=== PATIENT | female | born 1980 | race American Indian/Alaskan Native ===

== ENCOUNTER 2017-03-03 18:05 | Inpatient (IN) | payer MEDICAID, OTHER ==
[2017-03-03 19:28] LABS: BASO % 0.7 % (0.0-2.0); EOS % 0.3 % (0.0-4.0); LYMPH # 1.3 K/uL (1.0-4.3); LYMPH % 39.7 % (20.0-40.0); MEAN CELL VOLUME 68.8 fL (81.0-99.0); MEAN CORPUSCULAR HEMOGLOBIN 21.7 pg (27.0-31.0); MEAN CORPUSCULAR HGB CONC 31.5 g/dL (33.0-37.0); MEAN PLATELET VOLUME 7.8 fL (7.2-11.7); MONO # 0.2 K/uL (0.0-0.8); MONO % 5.1 % (0.0-10.0); NEUT # 1.7 K/uL (1.8-7.0); NEUT % 54.2 % (50.0-75.0); RBC 5.09 Mil/uL (3.80-5.20); RED CELL DISTRIBUTION WIDTH 16.1 % (11.5-14.5); WHITE BLOOD COUNT 3.2 K/uL (4.8-10.8)
[2017-03-03 19:30] LABS: HCG,QUALITATIVE URINE NEGATIVE (NEGATIVE)
[2017-03-03 19:36] LABS: SQUAMOUS EPITHIAL 26 /hpf (0-5); URINE BACTERIA MOD (<OCC); URINE BILIRUBIN NEGATIVE (NEGATIVE); URINE BLOOD NEGATIVE (NEGATIVE); URINE CLARITY Clear (Clear); URINE COLOR Yellow (YELLOW); URINE GLUCOSE (UA) NORMAL (Normal); URINE LEUKOCYTE ESTERASE NEG Leu/uL (Negative); URINE NITRATE NEGATIVE (NEGATIVE); URINE PROTEIN NEGATIVE (NEGATIVE); URINE UROBILINOGEN NORMAL mg/dL (0.2-1.0)
[2017-03-03 19:40] LABS: ACETAMINOPHEN < 10.0 ug/mL (10.0-30.0); SALICYLATE < 1.0 mg/dL 1
[2017-03-03 19:42] LABS: ALT/SGPT 18 U/L (9-52); AST/SGOT 21 U/L (14-36); BLOOD UREA NITROGEN 7 mg/dL (7-17); CALCIUM 8.6 mg/dl (8.6-10.4); GFR AFRICAN-AMERICAN > 60; GFR NON-AFRICAN AMERICAN > 60
[2017-03-03 19:55] LABS: BARBITURATES, UR NEGATIVE (NEGATIVE); BENZODIAZEPINES, UR NEGATIVE (NEGATIVE); PHENCYCLIDINE, UR NEGATIVE (NEGATIVE)
[2017-03-03 19:57] LABS: OPIATES, UR POSITIVE (NEGATIVE)
--- NOTE | 2017-03-03 20:33 | C.PDOC ---
History Of Present Illness 36 year old female presents to the ED for evaluation of auditory hallucinations and drug abuse. Patient reports she is hearing voices that tell her to hurt herself. Patient is also requesting detox from heroin and cocaine. Time Seen by Provider: 03/03/17 19:08 Chief Complaint (Nursing): Psychiatric Evaluation History Per: Patient History/Exam Limitations: no limitations Onset/Duration Of Symptoms: Hrs Current Symptoms Are (Timing): Still Present Suicide/Self Injury Attempted (Context): None Modifying Factor(s): Cocaine, Other (Heroin) Associated Symptoms: Depression, Suicidal Thoughts Involuntary Hold By: None Recent travel outside of the [place]: No Additional History Per: Patient Past Medical History Reviewed: Historical Data, Nursing Documentation, Vital Signs Vital Signs: Last Vital Signs Temp 99.7 F H 03/03/17 18:29 Pulse 100 H 03/03/17 18:29 Resp 18 03/03/17 18:29 BP 134/90 03/03/17 18:29 Pulse Ox 100 03/03/17 20:36 - Medical History PMH: Bipolar Disorder, Post Traumatic Stress Disorder Surgical History: No Surg Hx Family History: States: Unknown Family Hx - Social History Hx Alcohol Use: Yes Hx Substance Use: Yes (HEROIN/COCAINE) - Immunization History Hx Tetanus Toxoid Vaccination: No Hx Influenza Vaccination: No Hx Pneumococcal Vaccination: No Review Of Systems Constitutional: Negative for: Fever, Chills Cardiovascular: Negative for: Chest Pain, Palpitations Respiratory: Negative for: Cough, Shortness of Breath Gastrointestinal: Negative for: Nausea, Vomiting, Abdominal Pain Skin: Negative for: Rash Neurological: Negative for: Weakness, Numbness Psych: Negative for: Depression, Suicidal ideation Physical Exam - Physical Exam Appears: Non-toxic, Chronically Ill, Other (black female) Skin: Normal Color, Warm, Dry Head: Atraumatic, Normacephalic Nose: No Discharge Oral Mucosa: Moist Neck: Normal ROM, Supple Chest: Symmetrical Cardiovascular: Rhythm Regular, No Murmur Respiratory: Normal Breath Sounds, No Rales, No Rhonchi, No Wheezing Gastrointestinal/Abdominal: Soft, No Tenderness Extremity: Normal ROM, No Pedal Edema, No Calf Tenderness, No Deformity, No Swelling Neurological/Psych: Oriented x3 ED Course And Treatment - Laboratory Results Result Diagrams: 03/03/17 19:25 03/03/17 19:25 Lab Interpretation: Abnormal (tox + opiates/cocaine) Urine POC: Negative O2 Sat by Pulse Oximetry: 100 (On RA) Pulse Ox Interpretation: Normal Reevaluation Time: 21:04 Reassessment Condition: Unchanged - Physician Consult Information Outcome Of Conversation: 2100: d/w Crisis, ok to admit to psych Medical Decision Making Medical Decision Making: Plan: * Blood work * UA * 1:1 Obs 19:30 - spoke with crisis. Disposition Doctor Will See Patient In The: Hospital Counseled Patient/Family Regarding: Studies Performed - Disposition Disposition: HOSPITALIZED Disposition Time: 21:04 Condition: GOOD Forms: [employer] (Polish) - Clinical Impression Clinical Impression: Manic bipolar I disorder, Cocaine abuse, Opiate abuse, continuous - Scribe Statement The provider has reviewed the documentation as recorded by the Scribe Fermín Bravo All medical record entries made by the Scribe were at my direction and personally dictated by me. I have reviewed the chart and agree that the record accurately reflects my personal performance of the history, physical exam, medical decision making, and the department course for this patient. I have also personally directed, reviewed, and agree with the discharge instructions and disposition.
[2017-03-03 21:29] VITALS: O2SAT 98
--- NOTE | 2017-03-04 04:24 | PCM.BM ---
Treatment Plan Problems - Problems identified on initial assessmt Depression Date Initiated: 03/04/17 Time Initiated: Assessment reference: NA Status: Active Suicidal Ideations Date Initiated: 03/04/17 Time Initiated: Assessment reference: NA Status: Active Substance Abuse Date Initiated: 03/04/17 Time Initiated: Assessment reference: NA Status: Active Treatment assets and liabiliti Patient Assests: adapts well, cooperative, insightful, self-reliant, ADL independent, negotiates basic needs Patient Liabilities: poor support system, substance abuse, medical problems - Milieu Protocol Maintain good personal hygiene: daily Encourage regular showers, daily Remind patient to perform daily oral care, other Assist patient to perform ADL's (PRN) Maintain personal safety: every shift Monitor environment for contraband/sharps , other Educate patient to report safety concerns to staff (PRN) Medication safety: Monitor for expected outcome, potential side effects: every shift, Assess barriers to learning: every shift, Assess readiness for medication education: every shift
--- NOTE | 2017-03-04 10:48 | PCM.PSYCH ---
Initial Psychiatric Evaluation - Initial Psychiatric Evaluation Type of Admission: Voluntary Legal Status: Capacity Chief Complaint (in patient's own words): I was feeling very depressed.' History of Present Illness and Precipitating Events: Patient is a 36 year old AAF who was taken to the by the sister due to depression, hearing voice command type and S/I with plan to jump off pier or to overdose on heroin. Patient reports a long history of bipolar disorder. As per the ED notes,' Pt appeared to be responding to internal stimuli as pt had a delay in responding to questions. Pt states the voices have been occurring for the past several days and sister and family were concerned for pt. Pt had moved back into their three family home in November after being kicked out for drug use. Pt was homeless for some time. Sister brought pt here seeking help. Pt reports she has been verbalizing to family that she has a plan to hurt herself by jumping off pier or overdosing on heroin. Pt reports a hx of several suicide attempts of heroin overdose and medication overdose. Pt is currently not under the care of a psychiatric but her PCP who is prescribing meds. Pt has a hx of bipolar disorder but stopped taking risperdal and lithium 1 to 2 months ago. Pt does report hx of psychiatric admission but only reports at [facility] and [place]. Pt reports last use of heroin today 3 or 4 am and cocaine last use today 5pm. Pt remained very disorganized and internally preoccupied. She remained a poor historian. She still reports depressed mood, suicidal ideation and command type AH. She appeared delusional, paranoid and bizarre. She reports of injecting 12 bags of heroin and smoking $50 worth cocaine daily. She reports withdrawal symptoms including nausea, headache, cramps, joint pains and anxiety. She also reports poor sleep and poor appetite. Pt is currently experiencing suicidal thoughts with a plan to jump off pier or overdose on heroin. Pt denies H/I. PMH None reported Current Medications: Active Medications Generic Name Dose Route Start Last Admin Trade Name Freq PRN Reason Stop Dose Admin Mirtazapine 45 mg 03/03/17 23:30 03/04/17 00:02 Remeron PO 45 mg HS WHITLEY Administration Zolpidem Tartrate 5 mg 03/03/17 23:18 03/03/17 23:51 Ambien PO 5 mg HS PRN Administration Insomnia Past Psychiatric History - Past Psychiatric History Previous Treatment History: Inpatient Pertinent Medical Hx (Current Medical&Sleep Prob, Allergies): Allergies Allergy/AdvReac Type Severity Reaction Status Date / Time No Known Allergies Allergy Verified 03/03/17 18:37 Clonazepam [Klonopin] 2 mg PO DAILY 03/03/17 Mirtazapine [Remeron] 45 mg PO HS 03/03/17 Pantoprazole Sodium [Protonix] 40 mg PO DAILY 03/03/17 Zolpidem [Ambien] 10 mg PO HS 03/03/17 oxyCODONE/Acetaminophen [Percocet 5/325 mg Tab] 1 tab PO Q4 03/03/17 Review of Systems - Review of Systems All systems: reviewed and no additional remarkable complaints except - Psychiatric Psychiatric: Anxiety, Auditory Hallucinations, Depression, Hopelessness, Irritability, Suicidal Ideation Mental Status Examination - Personal Presentation Personal Presentation: Looks stated age - Affect Affect: Constricted, Depressed - Motor Activity Motor Activity: Psychomotor Retardation - Reliability in Providing Information Reliability in Providing Information: Poor, due to alteration in thoughts, Poor , due to altered mood - Speech Speech: Disorganized - Mood Mood: Depressed, Anxious - Formal Thought Process Formal Thought Process: Hallucinations, Delusions, Paranoia, Loosening of associations - Hallucinations/Delusions Hallucinations: Auditory - Obsessions/Compulsions Obsessions: No Compulsions: No - Cognitive Functions Orientation: Person, Place, Situation, Time Sensorium: Alert Attention/Concentration: Attentive Abstract Thinking: [place] Estimate of Intelligence: Below average Judgement: Imparied, as evidence by: Poor judgement, Imparied, as evidence by: Lack of insight into illness - Risk Risk: Suicidal, Withdrawal, Diminished functioning - Strength & Assets Inventory Strength & Assets Inventory: Family support - Limitations Limitations: Living alone DSM 5 DX - DSM 5 DSM 5 Diagnosis: Schizo affective disorder bipolar type Opioid use disorder severe Opioid withdrawal Cocaine use disorder moderate - Recommended/Plan of Treatment Treatment Recommendations and Plan of Treatment: Schizo affective disorder bipolar type -CBT -Psychoeducation -Supportive therapy, group therapy, individual therapy -Risperdal 2 mg PO QHS -Remeron 45 mg PO QHS -[place] 300 mg PO TID -Trazodone 50 mg by mouth daily at bedtime Opioid use disorder severe -CBT -Psychoeducation -Supportive therapy, individual therapy -Use [place] for abstinence Opioid withdrawal -CBT -Psychoeducation -Supportive therapy, individual therapy -Clonidine when necessary -Methadone taper Cocaine use disorder moderate -Monitor signs and symptoms -Use [place] for abstinence - Smoking Cessation Smoking Cessation Initiated: No
--- NOTE | 2017-03-05 14:40 | PCM.PYCHPN ---
Psychiatric Progress Note - Psychiatric Progress Note Patient seen today, length of contact: 15 min Patient Chief Complaint: I was feeling very depressed.' Problems Identified/Issues Discussed: Patient seen and evaluated, chart reviewed and discussed with the nurse. Patient reports irritability and agitation. She still reports depressed mood and feelings of hopelessness and helplessness. She remained isolated and withdrawn. She still reports withdrawal symptoms including anxiety, joint pains , abdominal cramps, headaches and sweating. Patient still appears disorganized and internally preoccupied. However she remained calm and cooperative. She is taking medication and denies any side effects. She needs more time for stabilization Supportive therapy and psychoeducation were given Medication Change: Yes (Methadone taper) Medical Record Reviewed: Yes Mental Status Examination - Cognitive Function Orientation: Person, Place, Situation, Time Memory: Intact Attention: WNL Concentration: Poor Association: Loose Fund of Knowledge: WNL - Mood Mood: Depressed, Anxious - Affect Affect: Constricted, Depressed - Speech Speech: Soft - Formal Thought Process Formal Thought Process: Hallucinations, Delusions, Paranoia, Loosening of associations - Suicidal Ideation Suicidal Ideation: No - Homicidal Ideation Homicidal Ideation: No Goal/Treatment Plan - Goal/Treatment Plan Need for Continued Stay: Remain at risks for inpatient hospitalization, Severe functional impairment Progress Toward Problem(s) and Goals/Treatment Plan: Schizo affective disorder bipolar type -CBT -Psychoeducation -Supportive therapy, group therapy, individual therapy -Risperdal 2 mg PO QHS -Remeron 45 mg PO QHS -[place] 300 mg PO TID -Trazodone 50 mg by mouth daily at bedtime Opioid use disorder severe -CBT -Psychoeducation -Supportive therapy, individual therapy -Use [place] for abstinence Opioid withdrawal -CBT -Psychoeducation -Supportive therapy, individual therapy -Clonidine when necessary -Methadone taper Cocaine use disorder moderate -Monitor signs and symptoms -Use [place] for abstinence - Smoking Cessation Smoking Cessation Initiated: No
--- NOTE | 2017-03-06 10:56 | PCM.PYCHPN ---
Psychiatric Progress Note - Psychiatric Progress Note Patient seen today, length of contact: 15 min Patient Chief Complaint: I was feeling little better.' Problems Identified/Issues Discussed: Patient seen and evaluated, chart reviewed and discussed with the nurse. Patient reports some improvement in her mood and paranoia. She reports improvement in her irritability and feelings of hopelessness and helplessness. She remained isolated and withdrawn. She still reports withdrawal symptoms i.e, anxiety, joint pains, abdominal cramps, headaches and sweating. She remained calm and cooperative. She is taking medication and denies any side effects. She needs more time for stabilization Supportive therapy and psychoeducation were given Medication Change: Yes (Methadone taper) Medical Record Reviewed: Yes Mental Status Examination - Cognitive Function Orientation: Person, Place, Situation, Time Memory: Intact Attention: WNL Concentration: Poor Association: WNL Fund of Knowledge: Poor - Mood Mood: Depressed, Anxious - Affect Affect: Constricted, Depressed - Speech Speech: Soft - Formal Thought Process Formal Thought Process: Paranoia - Suicidal Ideation Suicidal Ideation: No - Homicidal Ideation Homicidal Ideation: No Goal/Treatment Plan - Goal/Treatment Plan Need for Continued Stay: Severe depression anxiety, Severe functional impairment Progress Toward Problem(s) and Goals/Treatment Plan: Schizo affective disorder bipolar type -CBT -Psychoeducation -Supportive therapy, group therapy, individual therapy -Increase Risperdal 1 gm PO Q Daily -Risperdal 2 mg PO QHS -Remeron 45 mg PO QHS -[place] 300 mg PO TID -Trazodone 50 mg by mouth daily at bedtime Opioid use disorder severe -CBT -Psychoeducation -Supportive therapy, individual therapy -Use [place] for abstinence Opioid withdrawal -CBT -Psychoeducation -Supportive therapy, individual therapy -Clonidine when necessary -Methadone taper Cocaine use disorder moderate -Monitor signs and symptoms -Use [place] for abstinence - Smoking Cessation Smoking Cessation Initiated: No
--- NOTE | 2017-03-06 16:01 | CP.PCM.HP ---
Past Patient History - Infectious Disease Hx of Infectious Diseases: None - Past Social History Smoking Status: Never Smoked - CARDIAC Hx Cardiac Disorders: No Other/Comment: States she has peripheral neuropathy. Also noted 2 raised small abscessed appearing areas on arms: Above Rt. wrist/low arm, small hardened area , bruising (from skin popping) Skin with some erythema and warmth to touch. Left wrist: radial artery area small hardeded raised area as above, erythema less, warmth is less. - PULMONARY Hx Respiratory Disorders: No - NEUROLOGICAL Hx Neurological Disorder: No - HEENT Hx HEENT Problems: No - RENAL Hx Chronic Kidney Disease: No - ENDOCRINE/METABOLIC Hx Endocrine Disorders: No Other/Comment: HYPOGLYCEMIA - HEMATOLOGICAL/ONCOLOGICAL Hx Blood Disorders: No - INTEGUMENTARY Other/Comment: Noted with healed/in process of healing small circular scaring about the face - MUSCULOSKELETAL/RHEUMATOLOGICAL Hx Musculoskeletal Disorders: No - GASTROINTESTINAL Hx Bowel Surgery: Yes Other/Comment: STOMACH PROBLEMS. HX OF BOWEL OBSTRUCTIONS. Reports multiple surgeries, absorption difficulty at times. - GENITOURINARY/GYNECOLOGICAL Hx Genitourinary Disorders: No Other/Comment: HCG (-) - PSYCHIATRIC Hx Substance Use: Yes - SURGICAL HISTORY Hx Surgeries: Yes Hx Section: Yes (X1) Hx Gastric Bypass Surgery: Yes Other/Comment: CERGLACE. BOWEL SURGERY TO REPAIR OBSTRUCTION - ANESTHESIA Hx Anesthesia: Yes Hx Anesthesia Reactions: No Hx Malignant Hyperthermia: No Meds Allergies/Adverse Reactions: Allergies Allergy/AdvReac Type Severity Reaction Status Date / Time No Known Allergies Allergy Verified 03/03/17 18:37 Results - Vital Signs Recent Vital Signs: Last Vital Signs Temp 98.1 F 03/06/17 06:05 Pulse 78 03/06/17 15:55 Resp 18 03/06/17 06:05 BP 103/69 03/06/17 15:55 Pulse Ox 98 03/03/17 21:27 - Labs Result Diagrams: 03/03/17 19:25 03/03/17 19:25
--- NOTE | 2017-03-06 16:44 | CP.PCM.CON ---
<Orlando Shipman - Last Filed: 03/06/17 16:24> History of Present Illness - History of Present Illness History of Present Illness: Medicine Conult Note Patient is a 36 year old female with PMHx of B12 Def, Hyperglycemia, 4 stomach surgeries (Due to obstruction), depression, and BiPolar disorder who was admitted to Psychiatric unit for evaluation and treatment of depression, audio command type hallucination, and suicidal ideation. Medicine team was consulted on this patient for the evaluation and treatment of right arm lumps. Patient states she had tender erythema on both hands on sites where she injected heroin. She states it has been there for several weeks but has recently gotten palpable. In Dec. patient was admitted to [facility] in [place] for hand cellulitis and erythema. She was put on clindamycin and was supposed to continue taking PO Ab's but could not since she went to correction. ROS NEGATIVE: Fever, chills, motor weakness, sensory loss, chest pain, SOB. POSITVES: Hand Tenderness, Constipation PMHx: Hyperglycemia, B12 Def. PSHx: 4 stomach surgeries Allergies: Denies Social Hx: 1/2 PPD for 20 years. Denies EtOH use. Admits to Heroin and Coccaine use. Lives in the top floor of a 3 family house that her parents own. Is currently unemployed Hospitilizations: Latest is at [facility] as stated in HPI FamHx: Lupus (Grandmother, Mother, Sister, Daughter), Diabetes (multiple family members) Meds: Reviewed Psychotropic meds. Has B12 injections. PMD: Dr. Omega Kruse Review of Systems - Review of Systems Review of Systems: As per HPI Past Patient History - Infectious Disease Hx of Infectious Diseases: None - Past Social History Smoking Status: Never Smoked - CARDIAC Hx Cardiac Disorders: No Other/Comment: States she has peripheral neuropathy. Also noted 2 raised small abscessed appearing areas on arms: Above Rt. wrist/low arm, small hardened area , bruising (from skin popping) Skin with some erythema and warmth to touch. Left wrist: radial artery area small hardeded raised area as above, erythema less, warmth is less. - PULMONARY Hx Respiratory Disorders: No - NEUROLOGICAL Hx Neurological Disorder: No - HEENT Hx HEENT Problems: No - RENAL Hx Chronic Kidney Disease: No - ENDOCRINE/METABOLIC Hx Endocrine Disorders: No Other/Comment: HYPOGLYCEMIA - HEMATOLOGICAL/ONCOLOGICAL Hx Blood Disorders: No - INTEGUMENTARY Other/Comment: Noted with healed/in process of healing small circular scaring about the face - MUSCULOSKELETAL/RHEUMATOLOGICAL Hx Musculoskeletal Disorders: No - GASTROINTESTINAL Hx Bowel Surgery: Yes Other/Comment: STOMACH PROBLEMS. HX OF BOWEL OBSTRUCTIONS. Reports multiple surgeries, absorption difficulty at times. - GENITOURINARY/GYNECOLOGICAL Hx Genitourinary Disorders: No Other/Comment: HCG (-) - PSYCHIATRIC Hx Substance Use: Yes - SURGICAL HISTORY Hx Surgeries: Yes Hx Section: Yes (X1) Hx Gastric Bypass Surgery: Yes Other/Comment: CERGLACE. BOWEL SURGERY TO REPAIR OBSTRUCTION - ANESTHESIA Hx Anesthesia: Yes Hx Anesthesia Reactions: No Hx Malignant Hyperthermia: No Meds Allergies/Adverse Reactions: Allergies Allergy/AdvReac Type Severity Reaction Status Date / Time No Known Allergies Allergy Verified 03/03/17 18:37 - Medications Medications: Current Medications Benztropine Mesylate (Cogentin) 1 mg PO [facility] Last Admin: 03/05/17 21:48 Dose: 1 mg Clonidine HCl (Catapres) 0.1 mg PO Q8 PRN PRN Reason: COWS Score More or Equal to 5 Hydroxyzine HCl (Atarax) 25 mg PO Q6 PRN PRN Reason: Agitation Last Admin: 03/06/17 12:35 Dose: 25 mg [place] Carbonate ([place] Carbonate 300mg) 300 mg PO TID [facility] Last Admin: 03/06/17 13:04 Dose: 300 mg Loperamide HCl (Imodium) 2 mg PO Q8 PRN PRN Reason: Diarrhea Methadone HCl (Methadone) 5 mg PO DAILY PRN PRN Reason: opiate withdrawal Last Admin: 03/06/17 13:05 Dose: 5 mg Methadone HCl (Methadone) 5 mg PO DAILY [facility] PRN Reason: Taper Stop: 03/07/17 09:59 Last Admin: 03/06/17 09:39 Dose: 5 mg Mirtazapine (Remeron) 45 mg PO [facility] Last Admin: 03/05/17 21:48 Dose: 45 mg Ondansetron HCl (Zofran Tab) 4 mg PO Q8 PRN PRN Reason: Nausea/Vomiting Promethazine HCl (Phenergan Inj) 25 mg IM QID PRN PRN Reason: Nausea/Vomiting, Unable PO Risperidone (Risperdal Tab) 2 mg PO [facility] Last Admin: 03/05/17 21:47 Dose: 2 mg Risperidone (Risperdal Tab) 1 mg PO DAILY [facility] Zolpidem Tartrate (Ambien) 5 mg PO HS PRN PRN Reason: Insomnia Last Admin: 03/04/17 21:51 Dose: 5 mg Physical Exam - Constitutional Appears: Well, Non-toxic, No Acute Distress - Head Exam Head Exam: ATRAUMATIC, NORMAL INSPECTION, NORMOCEPHALIC - Eye Exam Eye Exam: EOMI, Normal appearance - ENT Exam ENT Exam: Mucous Membranes Moist - Neck Exam Neck exam: Negative for: Lymphadenopathy - Respiratory Exam Respiratory Exam: absent: Clear to Auscultation Bilateral, Rales, Rhonchi, Wheezes - Cardiovascular Exam Cardiovascular Exam: RRR, +S1, +S2 - GI/Abdominal Exam GI & Abdominal Exam: Normal Bowel Sounds, Soft. absent: Tenderness - Extremities Exam Extremities exam: Positive for: normal capillary refill. Negative for: pedal edema - Neurological Exam Neurological exam: Alert, Oriented x3 - Psychiatric Exam Psychiatric exam: Normal Affect - Skin Additional comments: Multiple IV ayoub on upper Ext. B/l 3 palpable erythematous lesions on dorsal surface of left hand 2 palpable erythematous lesions on right hand. One on dorsal surface on hand, one on ant. wrist. Results - Vital Signs Recent Vital Signs: Last Vital Signs Temp 98.1 F 03/06/17 06:05 Pulse 78 03/06/17 15:55 Resp 18 03/06/17 06:05 BP 103/69 03/06/17 15:55 Pulse Ox 98 03/03/17 21:27 - Labs Result Diagrams: 03/03/17 19:25 03/03/17 19:25 Assessment & Plan - Assessment and Plan (Free Text) Assessment: Patient is a 36 year old female with PMHx of B12 Def, Hyperglycemia, 4 stomach surgeries (Due to obstruction), depression, and BiPolar disorder who was admitted to Psychiatric unit for evaluation and treatment of depression, audio command type hallucination, and suicidal ideation. Medicine team was consulted on this patient for the evaluation and treatment of right arm lumps. Plan: Possible cellulitis vs abscess vs cyst with lymphangitis - B/L hand X-ray -B/L hand US -Clindamycin 300 TID -Florastor -B12 Level due to Hx of b12 -CMP/CBC -HIV -Hepatitis Panel Constipation: -Consider stopping Immodium due to constipation. Dispo: We will continue to follow this patient. Patient seen and discussed with Attending Orlando Shipman - [email or web address] - Date & Time Date: 03/06/17 Time: 16:57 <Missy Douglas V - Last Filed: 03/06/17 19:04> Meds - Medications Medications: Current Medications Benztropine Mesylate (Cogentin) 1 mg PO HS [facility] Last Admin: 03/05/17 21:48 Dose: 1 mg Clindamycin HCl (Cleocin) 300 mg PO TID [facility] Last Admin: 03/06/17 17:38 Dose: 300 mg Clonidine HCl (Catapres) 0.1 mg PO Q8 PRN PRN Reason: COWS Score More or Equal to 5 Hydroxyzine HCl (Atarax) 25 mg PO Q6 PRN PRN Reason: Agitation Last Admin: 03/06/17 12:35 Dose: 25 mg [place] Carbonate ([place] Carbonate 300mg) 300 mg PO TID [facility] Last Admin: 03/06/17 17:38 Dose: 300 mg Loperamide HCl (Imodium) 2 mg PO Q8 PRN PRN Reason: Diarrhea Methadone HCl (Methadone) 5 mg PO DAILY PRN PRN Reason: opiate withdrawal Last Admin: 03/06/17 13:05 Dose: 5 mg Methadone HCl (Methadone) 5 mg PO DAILY [facility] PRN Reason: Taper Stop: 03/07/17 09:59 Last Admin: 03/06/17 09:39 Dose: 5 mg Mirtazapine (Remeron) 45 mg PO HS [facility] Last Admin: 03/05/17 21:48 Dose: 45 mg Ondansetron HCl (Zofran Tab) 4 mg PO Q8 PRN PRN Reason: Nausea/Vomiting Promethazine HCl (Phenergan Inj) 25 mg IM QID PRN PRN Reason: Nausea/Vomiting, Unable PO Risperidone (Risperdal Tab) 2 mg PO HS [facility] Last Admin: 03/05/17 21:47 Dose: 2 mg Risperidone (Risperdal Tab) 1 mg PO DAILY [facility] Saccharomyces Boulardii (Florastor) 250 mg PO BID [facility] Last Admin: 03/06/17 17:38 Dose: 250 mg Zolpidem Tartrate (Ambien) 5 mg PO HS PRN PRN Reason: Insomnia Last Admin: 03/04/17 21:51 Dose: 5 mg Results - Vital Signs Recent Vital Signs: Last Vital Signs Temp 98.1 F 03/06/17 06:05 Pulse 78 03/06/17 15:55 Resp 18 03/06/17 06:05 BP 103/69 03/06/17 15:55 Pulse Ox 98 03/03/17 21:27 - Labs Result Diagrams: 03/03/17 19:25 03/03/17 19:25 Attending/Attestation - Attestation I have personally seen and examined this patient.: Yes I have fully participated in the care of the patient.: Yes I have reviewed all pertinent clinical information: Yes Notes (Text): Patient seen and examined and case discussed with medical transcription supervisor. Medicine consult for sit cellulitis and possible abscess or patient's hands. patient has been admitted to psych for depressio schizophrenia bipolar disorder. On admission patient is positive fo Opioids and cocaine. Patient admission did have some hypokalemia. Patient is a known IV drug user who reports has injected multiple sites of her body. Patient reports she uses clean needles where in she buys them from places like [employer] so she reports the needles are clean. Patient reports that she has been checked for HIV in the past reports that she is negative. Patient has been recommended for antibiotic in the past has not been compliant given incarceration. Physical Exam: Patient is awake alert oriented 3 in no acute distress. Lungs are clear to auscultation bilaterally no wheezing or rales rhonchi. Heart is S1-S2 is appreciated regular rate and rhythm no appreciable murmur on exam. Abdomen is soft nondistended and nontender bowel sounds are present. No rebound no guarding. Extremities range of motion (passive) is intact over the upper and lower extremity patient is able to have a firm handshake and denies any pain over the hand. Patient has over left wrist but 2 fingerbreadth mass which is soft appears normal on fixed nontender. Patient has mild cellulitis over the left outer aspect of the arm. Patient has multiple healing wounds over her face and small areas around her hand and wrist. Patient over her left wrist appears to have cyst. Suspicion for sebaceous cyst however she reports seeing she'll also has injected at that site. Patient has over her left forearm some mild lymphangitic spread. Patient has been afebrile. Patient ordered for lab work. Since her last operative risk from 03/03/2017. To monitor for any type of white count. Patient denies any allergies to medications. We will start patient on by mouth clindamycin to cover for both MRSA and anaerobic. Patient will be placed on probiotic. Patient is ordered for x-rays of her hands as well as an ultrasound just to appreciate what looks like a sebaceous cyst but rule out abscess.
[2017-03-06] MEDS: Saccharomyces Boulardi 250 mg Cap PO SCH (17:38)
[2017-03-06 20:39] LABS: BASO % 0.5 % (0.0-2.0); HEMOGLOBIN 10.9 g/dL (11.0-16.0); LYMPH # 2.5 K/uL (1.0-4.3); LYMPH % 51.6 % (20.0-40.0); MEAN CELL VOLUME 69.1 fL (81.0-99.0); MEAN CORPUSCULAR HEMOGLOBIN 21.1 pg (27.0-31.0); MEAN CORPUSCULAR HGB CONC 30.6 g/dL (33.0-37.0); MEAN PLATELET VOLUME 7.8 fL (7.2-11.7); MONO # 0.3 K/uL (0.0-0.8); MONO % 7.1 % (0.0-10.0); NEUT % 39.8 % (50.0-75.0); NRBC % 0.1 % (0.0-2.0); RBC 5.14 Mil/uL (3.80-5.20); RED CELL DISTRIBUTION WIDTH 16.6 % (11.5-14.5); WHITE BLOOD COUNT 4.9 K/uL (4.8-10.8)
[2017-03-06 20:58] LABS: ALBUMIN 4.3 g/dL (3.5-5.0); ALT/SGPT 19 U/L (9-52); AST/SGOT 22 U/L (14-36); BLOOD UREA NITROGEN 11 mg/dL (7-17); CALCIUM 8.6 mg/dl (8.6-10.4); GFR AFRICAN-AMERICAN > 60; GFR NON-AFRICAN AMERICAN > 60
--- NOTE | 2017-03-06 21:25 | US ---
EXAM: US Right Upper Extremity Non-Vascular, Limited CLINICAL HISTORY: 36 years old, female; Signs and symptoms; Swelling and other: R/O abscess of hands; Wrist and hand; Bilateral; Additional info: Rule out abscess of hands TECHNIQUE: Real-time ultrasound scan of the right upper extremity with image documentation. COMPARISON: No relevant prior studies available. FINDINGS: Soft tissues: Targeted ultrasound was performed of 2 areas of the right wrist. The distal aspect of the wrist on the palmar side there is a complex hypoechoic area measuring 1 x 0.3 x 0.6 cm. Vascularity is noted on color Doppler examination. A second area is noted laterally adjacent on the rest measuring 1 x 0.3 x 0.6 cm. Vascularity is noted within the surrounding soft tissues. IMPRESSION: 1. 2 areas of the inflammation in the soft tissues overlying the wrist. No abscess.. EXAM: US Left Upper Extremity Non-Vascular, Limited EXAM DATE/TIME: Exam ordered 03/06/2017 4:11 PM CLINICAL HISTORY: 36 years old, female; Signs and symptoms; Swelling and other: R/O abscess of hands; Wrist and hand; Bilateral; Additional info: Rule out abscess of hands TECHNIQUE: Real-time ultrasound scan of the left upper extremity with image documentation. COMPARISON: No relevant prior studies available. FINDINGS: Soft tissues: 3 areas were scanned in the left wrist. On the dorsal side there is a hypoechoic area measuring 1.8 x 0.4 x 1 cm. Vascularity is noted. Medially, adjacent to a superficial vein there is a fluid collection measuring 0.8 x 0.1 x 0.5 cm. A third area is noted posteriorly also hypoechoic in nature measuring 1.2 x 0.4 x 0.8 cm. Vascularity is noted in the adjacent soft tissues.. IMPRESSION: 1. Subcentimeter fluid collection noted in the medial aspect of the left wrist adjacent to a superficial vein. 2 other areas appear to be edematous soft tissue/phlegmons.
[2017-03-06 21:30] LABS: HEPATITIS B SURFACE AG NEGATIVE (NEGATIVE)
[2017-03-06 21:36] LABS: HEPATITIS A IGM NEGATIVE (NEGATIVE); HEPATITIS B CORE AB Negative (NEGATIVE)
[2017-03-06 21:47] LABS: HEPATITIS C ANTIBODY Negative (NEGATIVE)
[2017-03-07] MEDS: Saccharomyces Boulardi 250 mg Cap PO SCH ×2 (10:03→17:12)
--- NOTE | 2017-03-07 11:32 | CP.PCM.PN ---
<RicrichieMarlinayush - Last Filed: 03/07/17 11:25> Subjective - Date & Time of Evaluation Date of Evaluation: 03/07/17 Time of Evaluation: 07:00 - Subjective Subjective: Medicine Consult Progress Note Patient has been seen and examined. No complaints except for hand tenderness which has not been bothering her too much. She denies any fevers, chills, SOB, chest pain, or generalized weakness. Objective - Vital Signs/Intake and Output Vital Signs (last 24 hours): Temp Pulse Resp BP Pulse Ox 97.8 F 73 18 83/54 L 98 03/07/17 06:25 03/07/17 06:25 03/07/17 06:25 03/07/17 06:25 03/03/17 21:27 - Medications Medications: Current Medications Acetaminophen (Tylenol 325mg Tab) 650 mg PO Q6 PRN PRN Reason: Pain, Mild (1-3) Benztropine Mesylate (Cogentin) 1 mg PO [facility] Last Admin: 03/06/17 21:34 Dose: 1 mg Clindamycin HCl (Cleocin) 300 mg PO TID [facility] Last Admin: 03/07/17 10:03 Dose: 300 mg Clonidine HCl (Catapres) 0.1 mg PO Q8 PRN PRN Reason: COWS Score More or Equal to 5 Hydroxyzine HCl (Atarax) 25 mg PO Q6 PRN PRN Reason: Agitation Last Admin: 03/06/17 12:35 Dose: 25 mg [place] Carbonate ([place] Carbonate 300mg) 300 mg PO TID [facility] Last Admin: 03/07/17 10:04 Dose: 300 mg Loperamide HCl (Imodium) 2 mg PO Q8 PRN PRN Reason: Diarrhea Methadone HCl (Methadone) 5 mg PO DAILY PRN PRN Reason: opiate withdrawal Last Admin: 03/06/17 13:05 Dose: 5 mg Mirtazapine (Remeron) 45 mg PO [facility] Last Admin: 03/06/17 21:34 Dose: 45 mg Ondansetron HCl (Zofran Tab) 4 mg PO Q8 PRN PRN Reason: Nausea/Vomiting Promethazine HCl (Phenergan Inj) 25 mg IM QID PRN PRN Reason: Nausea/Vomiting, Unable PO Risperidone (Risperdal Tab) 2 mg PO [facility] Last Admin: 03/06/17 21:34 Dose: 2 mg Risperidone (Risperdal Tab) 1 mg PO DAILY [facility] Last Admin: 03/07/17 10:04 Dose: 1 mg Saccharomyces Boulardii (Florastor) 250 mg PO BID [facility] Last Admin: 03/07/17 10:03 Dose: 250 mg Zolpidem Tartrate (Ambien) 5 mg PO HS PRN PRN Reason: Insomnia Last Admin: 03/04/17 21:51 Dose: 5 mg - Labs Labs: 03/06/17 20:33 03/06/17 20:33 - Additional Findings Additional findings: - Constitutional Appears: Well, Non-toxic, No Acute Distress - Head Exam Head Exam: ATRAUMATIC, NORMAL INSPECTION, NORMOCEPHALIC - Eye Exam Eye Exam: EOMI, Normal appearance - ENT Exam ENT Exam: Mucous Membranes Moist - Neck Exam Neck exam: Negative for: Lymphadenopathy - Respiratory Exam Respiratory Exam: absent: Clear to Auscultation Bilateral, Rales, Rhonchi, Wheezes - Cardiovascular Exam Cardiovascular Exam: RRR, +S1, +S2 - GI/Abdominal Exam GI & Abdominal Exam: Normal Bowel Sounds, Soft. absent: Tenderness - Extremities Exam Extremities exam: Positive for: normal capillary refill. Negative for: pedal edema - Neurological Exam Neurological exam: Alert, Oriented x3 - Psychiatric Exam Psychiatric exam: Normal Affect - Skin Additional comments: Multiple IV ayoub on upper Ext. B/l 3 palpable erythematous lesions on dorsal surface of left hand 2 palpable erythematous lesions on right hand. One on dorsal surface on hand, one on ant. wrist. Assessment and Plan - Assessment and Plan (Free Text) Assessment: Patient is a 36 year old female with PMHx of B12 Def, Hyperglycemia, 4 stomach surgeries (Due to obstruction), depression, and BiPolar disorder who was admitted to Psychiatric unit for evaluation and treatment of depression, audio command type hallucination, and suicidal ideation. Medicine team was consulted on this patient for the evaluation and treatment of right arm lumps. Plan: Possible cellulitis vs abscess vs cyst with lymphangitis - B/L hand X-ray () - PENDING. Will follow up. -B/L hand US (03/06/17): Subcentimeter fluid collection noted in the medial aspect of the left wrist adjacent to a superficial vein. 2 other areas appear to be edematous soft tissue/phlegmons. -Clindamycin 300 TID -Florastor -HIV - NEGATIVE -Hepatitis Panel - NEGATIVE -Surgery Consult due to US findings ([place]) Constipation: -DC Immodium Microcytic Anemia -Ordered Anemia workup. -Start Iron Supplementation if workup shows low IRon . Dispo: We will continue to follow this patient. Will DC promethazine, Clonidine , and Immodium. Patient seen and discussed with Attending Orlando Shipman - PGY1 <Missy Douglas V - Last Filed: 03/11/17 15:04> Objective - Vital Signs/Intake and Output Vital Signs (last 24 hours): Temp Pulse Resp BP Pulse Ox 98.3 F 74 20 90/60 L 98 03/08/17 06:13 03/08/17 06:13 03/08/17 06:13 03/08/17 06:13 03/03/17 21:27 - Labs Labs: 03/06/17 20:33 03/06/17 20:33 Attending/Attestation - Attestation I have personally seen and examined this patient.: Yes I have fully participated in the care of the patient.: Yes I have reviewed all pertinent clinical information, including history, physical exam and plan: Yes Notes (Text): This is a late computer entry for 03/07/2017. Medicine on consult for cellulitis and associated arm lumps in the context of a patient who is an intravenous drug user. Patient cellulitic changes in lymphangitic spread have resolved as well as the size of arm lumps appear decreased. Patient's blood work does show mild anemia including low iron stores will start by mouth iron supplementation. The patient is recommended for hand surgery eval over associated arm lumps. Will continue by mouth antibiotic for cellulitis. Patient with prior history of B12 deficiency and as per lab B12 level sufficient. Patient has completed hand x-rays. Patient has complete hand ultrasound which shows mild fluid collection and what appears to be soft tissue edema or phlegmon. Patient is HIV and hepatitis panels are negative. Patient's promethazine, clonidine were discontinued given the patient has mild hypotension. Patient's Imodium discontinued given that she's had a sufficient bowel movement. Assessment/Plan 1. Cellulitis * Continue by mouth [id number] mg 3 times a day * Florstor 250mg Continue by mouth once a day * Extremity US (03/06/17): subcentimeter fluid collection noted in the medial aspect of the left wrist adjacent to superficial vein. 2 other areas appear to be edematous soft tissue/phlegmons * Hand xrays were completed. Pending report. 2. History of B21 Deficiency * B12 level ordered 3. Anemia * Patient is on contraception. * Patient ordered for iron studies, B12, folate, and reticulocyte count. * Patient to start PO iron supplementation. 4. History of IV Drug Use * Hepatitis panel: negative * HIV 1 and 2: negative 5.Schizoaffective disorder bipolar type Opioid use disorder Opioid withdrawal Cocaine use disorder moderate * Management as per psych.
[2017-03-07 12:33] LABS: IRON 30 ug/dL (37-170)
[2017-03-07 12:43] LABS: TOTAL IRON BINDING CAPACITY 411 ug/dL (250-450)
[2017-03-07 12:50] LABS: % IRON SATURATION 7 (20-55)
--- NOTE | 2017-03-07 13:03 | PCM.PYCHPN ---
Psychiatric Progress Note - Psychiatric Progress Note Patient seen today, length of contact: 15 min Patient Chief Complaint: I was feeling much better.'' Problems Identified/Issues Discussed: Patient seen and evaluated, chart reviewed and discussed with the nurse. Patient reports a lot of improvement in her mood and paranoia. She reports improvement in her irritability and feelings of hopelessness and helplessness. She is still asking for methadone for withdrawal symptoms i.e, anxiety, headaches and sweating. She remained calm and cooperative. She is taking medication and denies any side effects. She needs more time for stabilization Supportive therapy and psychoeducation were given Medication Change: Yes (Methadone taper) Medical Record Reviewed: Yes Mental Status Examination - Cognitive Function Orientation: Person, Place, Situation, Time Memory: Intact Attention: WNL Concentration: WNL Association: WNL Fund of Knowledge: WNL - Mood Mood: Depressed, Anxious - Affect Affect: Constricted, Depressed - Speech Speech: Soft - Formal Thought Process Formal Thought Process: No Impairment - Suicidal Ideation Suicidal Ideation: No - Homicidal Ideation Homicidal Ideation: No Goal/Treatment Plan - Goal/Treatment Plan Need for Continued Stay: Remain at risks for inpatient hospitalization, Severe functional impairment Progress Toward Problem(s) and Goals/Treatment Plan: Schizo affective disorder bipolar type -CBT -Psychoeducation -Supportive therapy, group therapy, individual therapy -Increase Risperdal 2 gm PO Q Daily -Risperdal 2 mg PO QHS -Remeron 45 mg PO QHS -[place] 300 mg PO TID -Trazodone 50 mg by mouth daily at bedtime Opioid use disorder severe -CBT -Psychoeducation -Supportive therapy, individual therapy -Use [place] for abstinence Opioid withdrawal -CBT -Psychoeducation -Supportive therapy, individual therapy -Clonidine when necessary -Methadone taper Cocaine use disorder moderate -Monitor signs and symptoms -Use [place] for abstinence
[2017-03-07 13:08] LABS: FERRITIN 8.6 ng/mL
[2017-03-07 13:40] LABS: FOLATE 5.4 ng/mL
[2017-03-08 06:13] VITALS: BP 90/60; PULSE 74; RESP 20; TEMP 98.3
[2017-03-08] MEDS: Saccharomyces Boulardi 250 mg Cap PO SCH (10:08)
--- NOTE | 2017-03-08 10:39 | PCM.PYCHDC ---
Mental Status Examination - Mental Status Examination Orientation: Person, Place, Situation, Time Memory: Intact Mood: Neutral Affect: Constricted Speech: Soft Attention: WNL Concentration: WNL Association: WNL Fund of Knowledge: WNL Formal Thought Process: No Impairment Description of patient's judgement and insight: GOOD, FAIR Psychotic Thoughts and Behaviors: denies any AVH Suicidal Ideation: No Current Homicidal Ideation?: No Discharge Summary - Discharge Note Reason for Hospitalization: Patient is a 36 year old AAF who was taken to the by the sister due to depression, hearing voice command type and S/I with plan to jump off pier or to overdose on heroin. Patient reports a long history of bipolar disorder. As per the ED notes,' Pt appeared to be responding to internal stimuli as pt had a delay in responding to questions. Pt states the voices have been occurring for the past several days and sister and family were concerned for pt. Pt had moved back into their three family home in November after being kicked out for drug use. Pt was homeless for some time. Sister brought pt here seeking help. Pt reports she has been verbalizing to family that she has a plan to hurt herself by jumping off pier or overdosing on heroin. Pt reports a hx of several suicide attempts of heroin overdose and medication overdose. Pt is currently not under the care of a psychiatric but her PCP who is prescribing meds. Pt has a hx of bipolar disorder but stopped taking risperdal and lithium 1 to 2 months ago. Pt does report hx of psychiatric admission but only reports at [facility] and [facility]. Pt reports last use of heroin today 3 or 4 am and cocaine last use today 5pm. Pt remained very disorganized and internally preoccupied. She remained a poor historian. She still reports depressed mood, suicidal ideation and command type AH. She appeared delusional, paranoid and bizarre. She reports of injecting 12 bags of heroin and smoking $50 worth cocaine daily. She reports withdrawal symptoms including nausea, headache, cramps, joint pains and anxiety. She also reports poor sleep and poor appetite. Pt is currently experiencing suicidal thoughts with a plan to jump off pier or overdose on heroin. Pt denies H/I. Laboratory Data: Abnormal Lab Results 03/07/17 03/07/17 03/07/17 12:08 12:08 12:08 Iron 30 L TIBC 411 % Saturation 7 L 8 L Ferritin 8.6 Vitamin B12 496 Folate 5.4 Consultations:: List each consultation separately and include: 1. Reason for request. 2. Findings. 3. Follow-up Summary of Hospital Course include:: 1. Description of specific treatment plan utilized for patients during their course of treatmen. 2. Summarize the time- course for resolution of acute symptoms and/or regressed behaviors. 3. Describe issues identified and worked on during hospitalization. 4. Describe medication utilized. 5. Describe medical problems identified and treated. 6. Reassessment of suicide risk Summary of Hospital Course: During the course of her stay, patient (pt) started progressively improving and no longer remained irritable, depressed, and suicidal. Her mood and anxiety were improved and she started attending groups and meetings and started socializing. Patient denied any feelings of hopelessness, helplessness, and worthlessness, denied any problem with the sleep or appetite, denied suicidal ideation or homicidal ideation. Pt denied any auditory or visual hallucinations. Some changes were made in her current medications and patient was discharged on following medications. She tolerated these medications very well and denied any side effects. She was discharged to the [facility]. - Final Diagnosis (DSM 5) Condition upon Discharge: GOOD DSM 5: Schizo affective disorder bipolar type Opioid use disorder severe Opioid withdrawal Cocaine use disorder moderate Disposition: HOME/ ROUTINE Follow-up Treatment Plan: Education: Pt was educated and counseled about the risks and benefits of taking and not taking medications. Pt was educated and counseled about the risks of drinking and abusing drugs. Pt was educated and counseled to go to the ER or call 911 if pt develop suicidal ideation or homicidal ideation, worsening of symptoms or severe side effects of the meds. Prescriptions/Medication Reconciliation: Benztropine [Cogentin] 1 mg PO HS #30 tab Clindamycin [Cleocin] 300 mg PO TID #30 cap Ferrous Sulfate [Feosol] 325 mg PO TID #90 tab Cut Off Carbonate [Cut Off Carbonate 300MG] 450 mg PO BID #60 cap risperiDONE [RisperDAL Tab] 2 mg PO HS #30 tab Saccharomyces Boulardi [Florastor] 250 mg PO BID #20 cap Zolpidem [Ambien] 5 mg PO HS PRN #14 tab PRN Reason: Insomnia - Smoking Cessation Smoking Cessation Medication prescribed: No - Antipsychotic Medications Pt discharged on 2 or more routine antipsychotic medications: No
--- NOTE | 2017-03-08 15:29 | CP.PCM.PN ---
<Orlando Shipman - Last Filed: 03/08/17 15:29> Subjective - Date & Time of Evaluation Date of Evaluation: 03/08/17 Time of Evaluation: 15:29 - Subjective Subjective: Patient has been seen and examined. No complaints except for hand tenderness which has not been bothering her too much. She denies any fevers, chills, SOB, chest pain, or generalized weakness. Objective - Vital Signs/Intake and Output Vital Signs (last 24 hours): Temp Pulse Resp BP Pulse Ox 98.3 F 74 20 90/60 L 98 03/08/17 06:13 03/08/17 06:13 03/08/17 06:13 03/08/17 06:13 03/03/17 21:27 - Labs Labs: 03/06/17 20:33 03/06/17 20:33 - Additional Findings Additional findings: - Constitutional Appears: Well, Non-toxic, No Acute Distress - Head Exam Head Exam: ATRAUMATIC, NORMAL INSPECTION, NORMOCEPHALIC - Eye Exam Eye Exam: EOMI, Normal appearance - ENT Exam ENT Exam: Mucous Membranes Moist - Neck Exam Neck exam: Negative for: Lymphadenopathy - Respiratory Exam Respiratory Exam: absent: Clear to Auscultation Bilateral, Rales, Rhonchi, Wheezes - Cardiovascular Exam Cardiovascular Exam: RRR, +S1, +S2 - GI/Abdominal Exam GI & Abdominal Exam: Normal Bowel Sounds, Soft. absent: Tenderness - Extremities Exam Extremities exam: Positive for: normal capillary refill. Negative for: pedal edema - Neurological Exam Neurological exam: Alert, Oriented x3 - Psychiatric Exam Psychiatric exam: Normal Affect - Skin Additional comments: Multiple IV ayoub on upper Ext. B/l 3 palpable erythematous lesions on dorsal surface of left hand (Improved) 2 palpable erythematous lesions on right hand. One on dorsal surface on hand, one on ant. wrist. 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 Medicine team was consulted on this patient for the evaluation and treatment of right arm lumps. Plan: Possible cellulitis vs abscess vs cyst with lymphangitis - B/L hand X-ray () - PENDING. Will follow up. -B/L hand US (03/06/17): Subcentimeter fluid collection noted in the medial aspect of the left wrist adjacent to a superficial vein. 2 other areas appear to be edematous soft tissue/phlegmons. -Clindamycin 300 TID -Florastor -HIV - NEGATIVE -Hepatitis Panel - NEGATIVE Constipation: -DC Immodium Microcytic Anemia -Ordered Anemia workup. -Start Iron Supplementation if workup shows low IRon . Dispo: Patient was DC'd before Attending rounds. She should be on Clindamycin 300 TID for another 3 days. Patient seen and discussed with Attending Orlando Shipman - PGY1 <Missy Douglas V - Last Filed: 03/11/17 15:07> Objective - Vital Signs/Intake and Output Vital Signs (last 24 hours): Temp Pulse Resp BP Pulse Ox 98.3 F 74 20 90/60 L 98 03/08/17 06:13 03/08/17 06:13 03/08/17 06:13 03/08/17 06:13 03/03/17 21:27 - Labs Labs: 03/06/17 20:33 03/06/17 20:33 Attending/Attestation - Attestation I have personally seen and examined this patient.: Yes I have fully participated in the care of the patient.: Yes I have reviewed all pertinent clinical information, including history, physical exam and plan: Yes Notes (Text): This is a late computer entry for 03/08/17. Patient was discharged by psychiatry prior to medicine rounds. Patient should be on Clindamycin on discharge for about 5-7 days. Hand xray results are pending. Assessment/Plan 1. Cellulitis * Continue by mouth [id number] mg 3 times a day * Florstor 250mg Continue by mouth once a day * Extremity US (03/06/17): subcentimeter fluid collection noted in the medial aspect of the left wrist adjacent to superficial vein. 2 other areas appear to be edematous soft tissue/phlegmons * Hand xrays were completed. Pending report. 2. History of B21 Deficiency * B12 level ordered 3. Anemia * Patient is on contraception. * Patient ordered for iron studies, B12, folate, and reticulocyte count. * Patient to start PO iron supplementation. 4. History of IV Drug Use * Hepatitis panel: negative * HIV 1 and 2: negative 5.Schizoaffective disorder bipolar type Opioid use disorder Opioid withdrawal Cocaine use disorder moderate * Management as per psych.
== END 2017-03-08 11:30 | disposition home or self-care (01) | DRG 430 ==
LOC: C.ER 18:05 → C.9E 21:05 → C.5E 21:28
PROVIDERS: ADMIT Psychiatry & Neurology Psychiatry; ATTEND Hospitalist
PROC: GZHZZZZ Group Psychotherapy (ICD-10-PCS; principal; 2017-03-03)
PROC: GZ58ZZZ Individual Psychotherapy, Cognitive-Behavioral (ICD-10-PCS; 2017-03-03)
PROC: GZ56ZZZ Individual Psychotherapy, Supportive (ICD-10-PCS; 2017-03-03)
PROC: HZ52ZZZ Individual Psychotherapy for Substance Abuse Treatment, Cognitive-Behavioral (ICD-10-PCS; 2017-03-03)
PROC: HZ59ZZZ Individual Psychotherapy for Substance Abuse Treatment, Supportive (ICD-10-PCS; 2017-03-03)
PROC: HZ56ZZZ Individual Psychotherapy for Substance Abuse Treatment, Psychoeducation (ICD-10-PCS; 2017-03-03)
PROC: HZ57ZZZ Individual Psychotherapy for Substance Abuse Treatment, Motivational Enhancement (ICD-10-PCS; 2017-03-03)
PROC: HZ2ZZZZ Detoxification Services for Substance Abuse Treatment (ICD-10-PCS; 2017-03-03)
DX: F25.0 Schizoaffective disorder, bipolar type (principal); F14.20 Cocaine dependence, uncomplicated; R45.851 Suicidal ideations; F11.23 Opioid dependence with withdrawal; E87.6 Hypokalemia; L03.114 Cellulitis of left upper limb; L03.113 Cellulitis of right upper limb; F43.10 Post-traumatic stress disorder, unspecified; F22 Delusional disorders; G62.9 Polyneuropathy, unspecified; Z98.84 Bariatric surgery status; Z59.0 Homelessness; Z79.899 Other long term (current) drug therapy; Z81.8 Family history of other mental and behavioral disorders; Z83.2 Family history of diseases of the blood and blood-forming organs and certain disorders involving the immune mechanism

== ENCOUNTER 2017-04-05 18:07 | Inpatient (IN) | payer MEDICAID, OTHER ==
[2017-04-05 18:50] VITALS: BMI 25.8
--- NOTE | 2017-04-05 20:46 | C.PDOC ---
History Of Present Illness 36 year old female presents to the ED requesting detox. Patient has a history of cocaine and heroin abuse, last use was today at 15:00. Patient reports her LMP was 2 months ago, and thinks she might be . Patient denies SI/HI, hallucinations, SOB, CP, abdominal pain. Time Seen by Provider: 04/05/17 20:36 Chief Complaint (Nursing): Substance Abuse History Per: Patient History/Exam Limitations: no limitations Onset/Duration Of Symptoms: Days Current Symptoms Are (Timing): Still Present Suicide/Self Injury Attempted (Context): None Modifying Factor(s): Cocaine, Other (Heroin) Severity: None Associated Symptoms: denies: Depression, Suicidal Thoughts, Suicidal Plan Involuntary Hold By: None Recent travel outside of the [place]: No Additional History Per: Patient Past Medical History Reviewed: Historical Data, Nursing Documentation, Vital Signs Vital Signs: Last Vital Signs Temp 98.8 F 04/05/17 18:50 Pulse 106 H 04/05/17 18:50 Resp 20 04/05/17 18:50 BP 109/61 04/05/17 18:50 Pulse Ox 100 04/05/17 20:47 - Medical History PMH: Bipolar Disorder, Depression, Post Traumatic Stress Disorder Denies: Chronic Kidney Disease Surgical History: No Surg Hx - [facility] DETOXIFICATION SERVICES FOR SUBSTANCE ABUSE TREATMENT (03/03/17) GROUP PSYCHOTHERAPY (03/03/17) INDIV PSYCHOTHERAPY FOR SUBSTANCE ABUSE TREATMENT, SUPPORT (03/03/17) INDIV PSYCHOTHERAPY FOR SUBSTANCE ABUSE, COGNITIV BEHAVIORAL (03/03/17) INDIV PSYCHOTHERAPY FOR SUBSTANCE ABUSE, MOTIVATION ENHANCE (03/03/17) INDIV PSYCHOTHERAPY FOR SUBSTANCE ABUSE, PSYCHOEDUCATION (03/03/17) INDIVIDUAL PSYCHOTHERAPY, COGNITIVE-BEHAVIORAL (03/03/17) INDIVIDUAL PSYCHOTHERAPY, SUPPORTIVE (03/03/17) Family History: States: Unknown Family Hx - Social History Hx Alcohol Use: No Hx Substance Use: Yes - Immunization History Hx Tetanus Toxoid Vaccination: No Hx Influenza Vaccination: No Hx Pneumococcal Vaccination: No Review Of Systems Constitutional: Negative for: Fever, Chills Cardiovascular: Negative for: Chest Pain, Palpitations Respiratory: Negative for: Cough, Shortness of Breath Gastrointestinal: Negative for: Nausea, Vomiting, Abdominal Pain Skin: Negative for: Rash Neurological: Negative for: Weakness, Numbness Psych: Negative for: Depression, Suicidal ideation Physical Exam - Physical Exam Appears: Non-toxic, No Acute Distress Skin: Normal Color, Warm, Dry Head: Atraumatic, Normacephalic Eye(s): bilateral: Normal Inspection Nose: No Discharge, No Deformity Oral Mucosa: Moist Neck: Normal ROM, Supple Chest: Symmetrical Cardiovascular: Rhythm Regular, No Murmur Respiratory: Normal Breath Sounds, No Rales, No Rhonchi, No Wheezing Gastrointestinal/Abdominal: Soft, No Tenderness, No Guarding, No Rebound Extremity: Normal ROM, No Calf Tenderness, No Deformity, No Swelling Neurological/Psych: Oriented x3, Normal Speech, Normal Cognition Gait: Steady ED Course And Treatment - Laboratory Results Result Diagrams: 04/05/17 20:52 04/05/17 20:52 O2 Sat by Pulse Oximetry: 100 (On RA) Pulse Ox Interpretation: Normal Medical Decision Making Medical Decision Making: Impression : detox Plan: * Labs * UA Disposition Discussed With : Lester Kimbrough Doctor Will See Patient In The: Hospital Counseled Patient/Family Regarding: Diagnosis - Disposition Disposition: HOSPITALIZED Disposition Time: 23:03 Condition: STABLE Forms: [facility] ([facility]) - POA Present On Arrival: None - Clinical Impression Clinical Impression: Opiate abuse, continuous - Scribe Statement The provider has reviewed the documentation as recorded by the Scribe Fermín Bravo All medical record entries made by the Scribe were at my direction and personally dictated by me. I have reviewed the chart and agree that the record accurately reflects my personal performance of the history, physical exam, medical decision making, and the department course for this patient. I have also personally directed, reviewed, and agree with the discharge instructions and disposition.
[2017-04-05 20:56] LABS: BASO % 0.9 % (0.0-2.0); EOS % 0.4 % (0.0-4.0); HEMOGLOBIN 10.4 g/dL (11.0-16.0); LYMPH # 2.2 K/uL (1.0-4.3); LYMPH % 44.6 % (20.0-40.0); MEAN CORPUSCULAR HEMOGLOBIN 21.5 pg (27.0-31.0); MEAN CORPUSCULAR HGB CONC 31.6 g/dL (33.0-37.0); MEAN PLATELET VOLUME 7.6 fL (7.2-11.7); MONO # 0.3 K/uL (0.0-0.8); NEUT # 2.3 K/uL (1.8-7.0); NEUT % 48.1 % (50.0-75.0); NRBC % 0.1 % (0.0-2.0); RBC 4.84 Mil/uL (3.80-5.20); WHITE BLOOD COUNT 4.8 K/uL (4.8-10.8)
[2017-04-05 21:13] LABS: ALB/GLOB RATIO 1.1 (1.0-2.1); ALBUMIN 4.3 g/dL (3.5-5.0); ALT/SGPT 20 U/L (9-52); AST/SGOT 31 U/L (14-36); BLOOD UREA NITROGEN 12 mg/dL (7-17); CALCIUM 9.4 mg/dl (8.6-10.4); GFR AFRICAN-AMERICAN > 60; GFR NON-AFRICAN AMERICAN > 60
[2017-04-05 21:29] LABS: HCG,QUALITATIVE URINE NEGATIVE (NEGATIVE)
[2017-04-05 21:39] LABS: BARBITURATES, UR NEGATIVE (NEGATIVE); BENZODIAZEPINES, UR NEGATIVE (NEGATIVE); PHENCYCLIDINE, UR NEGATIVE (NEGATIVE)
[2017-04-05 21:39] LABS: SQUAMOUS EPITHIAL 21 /hpf (0-5); URINE BILIRUBIN NEGATIVE (NEGATIVE); URINE BLOOD NEGATIVE (NEGATIVE); URINE CALCIUM OXALATE CRYSTALS FEW /hpf (<OCC); URINE CLARITY Hazy (Clear); URINE COLOR Amber (YELLOW); URINE GLUCOSE (UA) NORMAL (Normal); URINE LEUKOCYTE ESTERASE TRACE Leu/uL (Negative); URINE NITRATE NEGATIVE (NEGATIVE); URINE PROTEIN 1+ mg/dL (NEGATIVE); URINE UROBILINOGEN NORMAL mg/dL (0.2-1.0)
[2017-04-05 21:57] LABS: OPIATES, UR POSITIVE (NEGATIVE)
[2017-04-05] MEDS ORDERED: Aluminum Hydroxide/Magnesium Hydroxide Susp (30 mL) PO PRN (22:48)
--- NOTE | 2017-04-06 00:30 | PCM.BM ---
<Eve,Peri - Last Filed: 04/06/17 00:28> Treatment Plan Problems - Problems identified on initial assessmt Opiate dependence Date Initiated: 04/06/17 Time Initiated: 23:55 Treatment assets and liabiliti Patient Assests: adapts well, cooperative, insightful, self-reliant, ADL independent, negotiates basic needs - Milieu Protocol Maintain good personal hygiene: daily Encourage regular showers, daily Remind patient to perform daily oral care, daily Assist patient to perform ADL's Maintain personal safety: every shift Educate patient to report safety concerns to staff, every shift Monitor environment for contraband/sharps Medication safety: Monitor for expected outcome, potential side effects: every shift, Assess barriers to learning: every shift, Assess readiness for medication education: every shift <Prisca Navas - Last Filed: 04/08/17 13:19> - Diagnosis (1) Bipolar 1 disorder, depressed Status: Acute Interventions: 04/08/17 13:19 * Assess/adjust medications daily and /or as needed * See patient on an individual basis 7x/week to assess level of manic behaviors and stability * Discuss risks, benefits, side effects and alternatives of medications * (2) Opiate abuse, continuous Status: Acute Interventions: 04/08/17 13:19 * Assess 7x/week regarding severity of withdrawal * Educate regarding risks, benefits, side effects and alternatives of medications * Use Motivational Interviewing for abstinence * Use CBT for relapse prevention * Medication management for withdrawal symptoms * Encourage medication assisted treatment *
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
[2017-04-06] MEDS: Benzocaine 10% Oral Anesthetic (12 ml) MM PRN (11:02)
[2017-04-06] MEDS: Pantoprazole 40 mg EC Tab PO SCH (11:02)
[2017-04-06] MEDS: Vitamins A & D Oint UD Foilpak TOP PRN (16:17)
[2017-04-07] MEDS: Pantoprazole 40 mg EC Tab PO SCH (09:54)
--- NOTE | 2017-04-07 12:37 | PCM.PYCHPN ---
Psychiatric Progress Note - Psychiatric Progress Note Patient seen today, length of contact: 15 min Patient Chief Complaint: I'm still withdrawing Problems Identified/Issues Discussed: Patient seen and evaluated, chart reviewed and discussed with the nurse. The patient reports anxiety and reports withdrawal symptoms including abdominal cramps, joint pains, nausea headaches and sweating. As per the nurse patient is improving but still reports of anxiety. Patient denies any suicidal ideation or homicidal ideation. Patient is tolerating detox medications and denies any side effects. Symptoms are improving but he needs more time for stabilization Supportive therapy and psychoeducation were given. Medication Change: Yes (Methadone taper) Medical Record Reviewed: Yes Mental Status Examination - Cognitive Function Orientation: Person, Place, Situation, Time Memory: Intact Attention: WNL Concentration: Poor Association: WNL Fund of Knowledge: Poor - Mood Mood: Anxious - Affect Affect: Constricted - Speech Speech: Soft - Formal Thought Process Formal Thought Process: No Impairment - Suicidal Ideation Suicidal Ideation: No - Homicidal Ideation Homicidal Ideation: No Goal/Treatment Plan - Goal/Treatment Plan Need for Continued Stay: Severe depression anxiety, Severe functional impairment Progress Toward Problem(s) and Goals/Treatment Plan: Opioid use disorder severe CBT Psychoeducation Supportive therapy, individual therapy Use [place] for abstinence Opioid withdrawal CBT Psychoeducation Supportive therapy, individual therapy Clonidine when necessary Methadone taper Cocaine use disorder severe Monitor signs and symptoms Use [place] for abstinence UTI Start antibiotics Bipolar disorder CBT Psychoeducation Supportive therapy, individual therapy [place] 300 mg by mouth twice daily Risperdal 1 mg by mouth daily at bedtime Trazodone 100 mg by mouth daily at bedtime - Smoking Cessation Smoking Cessation Initiated: No
[2017-04-07] MEDS: Amoxicillin-Clav 500-125 mg Tab PO SCH (13:03)
[2017-04-07] MEDS: Benzocaine 10% Oral Anesthetic (12 ml) MM PRN (16:32)
[2017-04-07] MEDS: Vitamins A & D Oint UD Foilpak TOP PRN (17:15)
[2017-04-08] MEDS: Amoxicillin-Clav 500-125 mg Tab PO SCH ×2 (00:27→13:25)
[2017-04-08] MEDS: Pantoprazole 40 mg EC Tab PO SCH (09:32)
[2017-04-08] MEDS ORDERED: Influenza Vaccine 60 mcg/0.5 mL SYR (4YR UP) IM ONE (10:00)
[2017-04-08] MEDS ORDERED: Pneumococcal 23-Valent Vaccine IM ONE (10:00)
--- NOTE | 2017-04-08 13:17 | PCM.PYCHPN ---
Psychiatric Progress Note - Psychiatric Progress Note Patient seen today, length of contact: 16 min Patient Chief Complaint: "I need help" Problems Identified/Issues Discussed: The pt is seen, chart reviewed, case discussed with staff. Support given, CBT and NH used briefly No new symptoms reported, improving slowly and needs more time No SEs from medications, risks discussed. After care discussed, she really wants to go to a rehab and claims she can even stop her meds for that (not recommended) Her alternative is methaodne or suboxone Medication Change: Yes (Methadone taper) Medical Record Reviewed: Yes Mental Status Examination - Cognitive Function Orientation: Person, Place, Situation, Time Memory: Impaired Attention: Poor Concentration: Poor Association: WNL Fund of Knowledge: Poor - Mood Mood: Anxious - Affect Affect: Constricted - Speech Speech: Appropriate, Soft - Formal Thought Process Formal Thought Process: No Impairment - Suicidal Ideation Suicidal Ideation: No - Homicidal Ideation Homicidal Ideation: No Goal/Treatment Plan - Goal/Treatment Plan Need for Continued Stay: Severe depression anxiety, Discharge may exacerbated symptoms, Severe functional impairment Progress Toward Problem(s) and Goals/Treatment Plan: Methadone detox Gabapentin for augmentation As needed medications All risks, benefits and alternatives of the meds discussed, and the pt agreed and understood. Attend groups and activities Supportive therapy and psychoeducation NH for abstinence CBT for relapse prevention Encourage MAT Refer to rehab or IOP, and self-help groups Smoking cessation with NH Nicotine patch
[2017-04-08] MEDS: Benzocaine 10% Oral Anesthetic (12 ml) MM PRN (17:17)
[2017-04-09] MEDS: Amoxicillin-Clav 500-125 mg Tab PO SCH ×2 (00:36→12:53)
[2017-04-09] MEDS: Pantoprazole 40 mg EC Tab PO SCH (10:37)
--- NOTE | 2017-04-09 13:22 | PCM.PYCHPN ---
Psychiatric Progress Note - Psychiatric Progress Note Patient seen today, length of contact: 16 min Patient Chief Complaint: "OK" Problems Identified/Issues Discussed: The pt is seen, chart reviewed, case discussed with staff. The pt is compliant with medications and reports no side-effects. Symptoms are improving but needs more time to stabilize. After care discussed, support and psychoeducation given. Medication Change: Yes (Methadone taper) Medical Record Reviewed: Yes Mental Status Examination - Cognitive Function Orientation: Person, Place, Situation, Time Memory: Impaired Attention: Poor Concentration: Poor Association: WNL Fund of Knowledge: Poor - Mood Mood: Anxious - Affect Affect: Constricted - Speech Speech: Appropriate, Soft - Formal Thought Process Formal Thought Process: No Impairment - Suicidal Ideation Suicidal Ideation: No - Homicidal Ideation Homicidal Ideation: No Goal/Treatment Plan - Goal/Treatment Plan Need for Continued Stay: Severe depression anxiety, Discharge may exacerbated symptoms, Severe functional impairment Progress Toward Problem(s) and Goals/Treatment Plan: Methadone detox Gabapentin for augmentation As needed medications All risks, benefits and alternatives of the meds discussed, and the pt agreed and understood. Attend groups and activities Supportive therapy and psychoeducation [place] for abstinence CBT for relapse prevention Encourage MAT Refer to rehab or IOP, and self-help groups Smoking cessation with [facility] Nicotine patch
[2017-04-09 13:44] VITALS: RESP 18
[2017-04-10] MEDS: Amoxicillin-Clav 500-125 mg Tab PO SCH (00:07)
--- NOTE | 2017-04-10 08:46 | PCM.PYCHDC ---
Mental Status Examination - Mental Status Examination Orientation: Person, Place, Situation, Time Memory: Intact Mood: Anxious Affect: Constricted Speech: Appropriate Attention: WNL Concentration: WNL Association: WNL Fund of Knowledge: WNL Formal Thought Process: No Impairment Suicidal Ideation: No Current Homicidal Ideation?: No Discharge Summary - Discharge Note Reason for Hospitalization: Heroin detox Consultations:: List each consultation separately and include: 1. Reason for request. 2. Findings. 3. Follow-up Summary of Hospital Course include:: 1. Description of specific treatment plan utilized for patients during their course of treatmen. 2. Summarize the time- course for resolution of acute symptoms and/or regressed behaviors. 3. Describe issues identified and worked on during hospitalization. 4. Describe medication utilized. 5. Describe medical problems identified and treated. 6. Reassessment of suicide risk Summary of Hospital Course: The pt was admitted and started on treatment with psychotherapy, support, psychoeducation and medications. OR and CBT used. The pt attended groups and activities, as well as milieu therapy. All the risks and benefits of medications are discussed and the patient understood and agreed. The pt improved with the treatments provided. After care discussed with the patient. She went to [facility] - Final Diagnosis (DSM 5) Condition upon Discharge: STABLE DSM 5: Opioid use disorder severe Opioid withdrawal Cocaine use disorder severe Bipolar disorder mixed severe with psychotic features Disposition: HOME/ ROUTINE Follow-up Treatment Plan: Continue below medications after discharge. Follow after care plan as discussed. Use relapse prevention skills Return to ER or call 911 if suicidal, homicidal or symptoms relapse. Stay away from stress, alcohol and drugs. See primary doctor regularly and get labs. Prescriptions/Medication Reconciliation: Amoxicillin/Clavulanate [Augmentin 500 MG-125 MG Tab] 1 tab PO Q12H #10 tab Gabapentin [Neurontin] 300 mg PO TID #90 cap Nitrofurantoin Macrocrystals [Macrobid] 100 mg PO Q12H #7 cap traZODone [Desyrel] 100 mg PO HS #30 tab
[2017-04-10] MEDS: Pantoprazole 40 mg EC Tab PO SCH (09:12)
[2017-04-10 09:37] VITALS: BP 106/76; PULSE 94; TEMP 97.6; O2SAT 100
== END 2017-04-10 10:05 | disposition home or self-care (01) | DRG 430 ==
LOC: C.ER 18:07 → C.7D 23:04
PROVIDERS: ADMIT Psychiatry & Neurology Psychiatry; ATTEND Psychiatry & Neurology Psychiatry
PROC: HZ2ZZZZ Detoxification Services for Substance Abuse Treatment (ICD-10-PCS; principal; 2017-04-05)
DX: F31.64 Bipolar disorder, current episode mixed, severe, with psychotic features (principal); F11.23 Opioid dependence with withdrawal; N39.0 Urinary tract infection, site not specified; F14.10 Cocaine abuse, uncomplicated; F43.10 Post-traumatic stress disorder, unspecified